=== PATIENT | female | born 1965 | race African-American/Black ===

== ENCOUNTER 2017-04-13 14:39 | Emergency (ER) | payer OTHER ==
[~2017-04-13] VITALS: Ht 167.6 cm; Wt 33.8 kg
[2017-04-13 19:46] VITALS: BP 112/60
== END 2017-04-13 19:52 ==
LOC: EME 14:39
DX: R51 Headache (principal); W19.XXXA Unspecified fall, initial encounter; Y93.89 Activity, other specified; Y92.128 Other place in nursing home as the place of occurrence of the external cause; F03.90 Unspecified dementia, unspecified severity, without behavioral disturbance, psychotic disturbance, mood disturbance, and anxiety; Z21 Asymptomatic human immunodeficiency virus [HIV] infection status; F17.200 Nicotine dependence, unspecified, uncomplicated
CPT/HCPCS: 70450; 99281; 99284